=== PATIENT | female | born 2005 | race Caucasian/White ===

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

== ENCOUNTER → 2024-01-09 | Outpatient (REF) | payer BC ==
[2024-01-09 19:53] LABS: BASO # 0.1 10^3/uL (0.0-0.2); BASO % 0.8 % (0.0-1.0); EOS # 0.2 10^3/uL (0.0-0.5); EOS % 3.5 % (0.0-3.0); HEMOGLOBIN 14.3 g/dl (12.0-15.5); LYMPH # 2.5 10^3/uL (1.5-5.0); LYMPH % 42.2 % (24.0-44.0); MEAN CORPUSCULAR HEMOGLOBIN 31.3 pg (27.0-33.0); MEAN CORPUSCULAR VOLUME 91.9 fl (80.0-96.0); MONO # 0.5 10^3/uL (0.0-0.8); MONO % 8.7 % (2.0-8.0); NEUTROPHILS # 2.6 10^3/uL (1.5-8.5); NEUTROPHILS % 43.3 % (36.0-66.0); PLATELET COUNT, AUTOMATED 273 10^3/uL (150-450); RED BLOOD COUNT 4.57 10^6/uL (4.00-5.40)
[2024-01-09 20:24] LABS: ALBUMIN 4.1 G/DL (3.2-5.2); ALKALINE PHOSPHATASE 71 U/L (46-116); ALT/SGPT 17 U/L (7.0-40); AST/SGOT 19 U/L (<34); BILIRUBIN,TOTAL 0.6 MG/DL (0.3-1.2); BLOOD UREA NITROGEN 11 MG/DL (9-23); CALCIUM LEVEL 8.5 MG/DL (8.5-10.1); CARBON DIOXIDE LEVEL 25 MMOL/L (20-31); CHLORIDE LEVEL 108 MMOL/L (98-107); CREATININE FOR GFR 0.56 MG/DL (0.55-1.30); GLUCOSE, FASTING 83 MG/DL (60-100); POTASSIUM SERUM 4.7 MMOL/L (3.5-5.1); SODIUM LEVEL 138 MMOL/L (136-145); TOTAL PROTEIN 6.8 G/DL (5.7-8.2)
[2024-01-09 20:25] LABS: THYROID STIMULATING HORMONE 1.078 uIU/ML (0.48-4.17)
== END ==
LOC: M LAB REF 19:02
PROVIDERS: ATTEND Physician Assistant
DX: E55.9 Vitamin D deficiency, unspecified (principal)

== ENCOUNTER 2024-03-12 19:30 | Emergency (ER) | payer BC ==
[~2024-03-12] VITALS: Ht 167.6 cm; Wt 53.7 kg
[2024-03-12 19:31] VITALS: BP 127/81; TEMP 96.1; O2SAT 100
[2024-03-12 20:35] LABS: BASO # 0.1 10^3/uL (0.0-0.2); BASO % 0.6 % (0.0-1.0); EOS # 0.1 10^3/uL (0.0-0.5); EOS % 1.5 % (0.0-3.0); HEMATOCRIT 40.6 % (36.0-47.0); HEMOGLOBIN 14.2 g/dl (12.0-15.5); LYMPH # 2.8 10^3/uL (1.5-5.0); LYMPH % 35.1 % (24.0-44.0); MEAN CORPUSCULAR HEMOGLOBIN 32.1 pg (27.0-33.0); MEAN CORPUSCULAR VOLUME 91.9 fl (80.0-96.0); MONO # 0.8 10^3/uL (0.0-0.8); MONO % 9.8 % (2.0-8.0); NEUTROPHILS # 4.1 10^3/uL (1.5-8.5); NEUTROPHILS % 52.9 % (36.0-66.0); PLATELET COUNT, AUTOMATED 340 10^3/uL (150-450); RED BLOOD COUNT 4.42 10^6/uL (4.00-5.40); WHITE BLOOD COUNT 7.8 10^3/uL (4.0-10.0)
[2024-03-12 21:05] LABS: BLOOD UREA NITROGEN 13 MG/DL (9-23); CALCIUM LEVEL 9.4 MG/DL (8.5-10.1); CARBON DIOXIDE LEVEL 26 MMOL/L (20-31); CHLORIDE LEVEL 106 MMOL/L (98-107); CREATININE FOR GFR 0.64 MG/DL (0.55-1.30); GLUCOSE, FASTING 118 MG/DL (60-100); HCG, SERUM QUANTITATIVE 110.5 MIU/ML (<4.2); POTASSIUM SERUM 4.2 MMOL/L (3.5-5.1); SODIUM LEVEL 140 MMOL/L (136-145)
[2024-03-12 21:53] LABS: ALBUMIN 4.4 G/DL (3.2-5.2); ALKALINE PHOSPHATASE 75 U/L (46-116); ALT/SGPT 20 U/L (7.0-40); AST/SGOT 25 U/L (<34); BILIRUBIN,DIRECT 0.1 MG/DL (<0.4); BILIRUBIN,TOTAL 0.3 MG/DL (0.3-1.2)
== END 2024-03-12 23:09 | disposition home or self-care (01) ==
LOC: M ED 19:30
DX: O20.0 Threatened abortion (principal); O99.340 Other mental disorders complicating pregnancy, unspecified trimester; O99.320 Drug use complicating pregnancy, unspecified trimester; O99.330 Smoking (tobacco) complicating pregnancy, unspecified trimester; O99.310 Alcohol use complicating pregnancy, unspecified trimester; Z88.2 Allergy status to sulfonamides

== ENCOUNTER → 2024-03-15 | Outpatient (CLI) | payer BC | LOC: M LAB 07:46 | PROVIDERS: ATTEND Physician Assistant | DX: O26.851 Spotting complicating pregnancy, first trimester (principal); Z3A.00 Weeks of gestation of pregnancy not specified ==

== ENCOUNTER → 2024-03-19 | Outpatient (CLI) | payer BC | LOC: M LAB 16:12 | PROVIDERS: ATTEND Physician Assistant | DX: O26.851 Spotting complicating pregnancy, first trimester (principal); Z3A.00 Weeks of gestation of pregnancy not specified ==

== ENCOUNTER 2024-03-28 11:48 | Emergency (ER) | payer BC ==
[~2024-03-28] VITALS: Ht 167.6 cm; Wt 54.7 kg
[2024-03-28] MEDS: LIDOCAINE VISCOUS 2% SOLN 15ML UDC SS ONE (12:39)
[2024-03-28] MEDS: ACETAMINOPHEN 325MG/10.15ML UDC PO ONE (12:39)
[2024-03-28] MEDS ORDERED: LIDVISCBTL PO (12:58)
[2024-03-28] MEDS ORDERED: TYLE160S16 PO (12:58)
[2024-03-28] MEDS ORDERED: AMOX400S2 PO (12:58)
[2024-03-28 13:13] VITALS: BP 122/81; TEMP 100.1; O2SAT 96
== END 2024-03-28 13:12 | disposition home or self-care (01) ==
LOC: M ED 11:48
DX: J02.0 Streptococcal pharyngitis (principal); Z88.2 Allergy status to sulfonamides; F17.290 Nicotine dependence, other tobacco product, uncomplicated; Z11.52 Encounter for screening for COVID-19

== ENCOUNTER → 2024-11-27 | Outpatient (REF) | payer BC ==
[~2024-11-27] MED LIST: AMOX400S2 PO; LIDVISCBTL PO; TYLE160S16 PO
[2024-11-27 21:31] LABS: BACTERIA, URINE AUTO 1+ (NEGATIVE); MUCUS, URINE SMALL (NEGATIVE); RBC, URINE AUTO 0 /HPF (0-3); SQUAMOUS EPITHELIAL CELL UR AU 17 /HPF (0-6); WBC, URINE AUTO 0 /HPF (0-3)
[2024-11-27 21:44] LABS: APPEARANCE, URINE HAZY (CLEAR); BILIRUBIN, URINE AUTO NEGATIVE (NEGATIVE); BLOOD, URINE BLOOD NEGATIVE (NEGATIVE); COLOR, URINE YELLOW (YELLOW); GLUCOSE, URINE (UA) AUTO NEGATIVE (NEGATIVE); KETONE, URINE AUTO NEGATIVE (NEGATIVE); LEUKOCYTE ESTERASE, URINE AUTO NEGATIVE (NEGATIVE); NITRITE, URINE AUTO NEGATIVE (NEGATIVE); PROTEIN, URINE AUTO NEGATIVE (NEGATIVE); SPECIFIC GRAVITY URINE AUTO 1.023 (1.002-1.035)
[2024-11-27 22:28] LABS: Trichomonas vaginalis (AMP) NOT DETECTED (NEGATIVE)
[2024-11-27 22:51] LABS: GC DNA AMPLIFICATION NEGATIVE (NEGATIVE)
== END ==
LOC: M LAB REF 20:57
PROVIDERS: ATTEND Physician Assistant Medical
DX: Z11.3 Encounter for screening for infections with a predominantly sexual mode of transmission (principal)

== ENCOUNTER 2025-03-16 15:27 | Emergency (ER) | payer BC ==
[~2025-03-16] VITALS: Ht 170.2 cm; Wt 54.1 kg
[2025-03-16 15:32] VITALS: TEMP 98.2
[2025-03-16 16:17] LABS: EOS % 1.4 % (0.0-3.0); HEMATOCRIT 41.5 % (36.0-47.0); HEMOGLOBIN 14.4 g/dl (12.0-15.5); LYMPH # 1.4 10^3/uL (1.5-5.0); LYMPH % 49.1 % (24.0-44.0); MEAN CORPUSCULAR HEMOGLOBIN 31.9 pg (27.0-33.0); MEAN CORPUSCULAR HGB CONC 34.7 g/dl (32.0-36.5); MONO # 0.3 10^3/uL (0.0-0.8); MONO % 9.3 % (2.0-8.0); NEUTROPHILS # 1.1 10^3/uL (1.5-8.5); NEUTROPHILS % 39.2 % (36.0-66.0); PLATELET COUNT, AUTOMATED 303 10^3/uL (150-450); RED BLOOD COUNT 4.51 10^6/uL (4.00-5.40); WHITE BLOOD COUNT 2.9 10^3/uL (4.0-10.0)
[2025-03-16 16:46] LABS: BLOOD UREA NITROGEN 9 MG/DL (9-23); CALCIUM LEVEL 8.9 MG/DL (8.5-10.1); CARBON DIOXIDE LEVEL 26 MMOL/L (20-31); CHLORIDE LEVEL 105 MMOL/L (98-107); CREATININE FOR GFR 0.63 MG/DL (0.55-1.30); GLOMERULAR FILTRATION RATE > 90.0 (>60); GLUCOSE, FASTING 84 MG/DL (60-100); POTASSIUM SERUM 4.1 MMOL/L (3.5-5.1); SODIUM LEVEL 142 MMOL/L (136-145)
[2025-03-16 17:45] VITALS: BP 130/90; O2SAT 99
== END 2025-03-16 17:45 | disposition home or self-care (01) ==
LOC: M ED 15:27
DX: K64.9 Unspecified hemorrhoids (principal); Z88.2 Allergy status to sulfonamides

== ENCOUNTER 2025-06-09 02:55 | Inpatient (IN) | payer BC ==
[~2025-06-09] VITALS: Ht 170.2 cm; Wt 55.0 kg
[2025-06-09 03:32] LABS: BASO # 0.1 10^3/uL (0.0-0.2); BASO % 0.5 % (0.0-1.0); EOS # 0.1 10^3/uL (0.0-0.5); EOS % 0.6 % (0.0-3.0); LYMPH # 4.5 10^3/uL (1.5-5.0); LYMPH % 44.5 % (24.0-44.0); MONO # 0.9 10^3/uL (0.0-0.8); MONO % 8.4 % (2.0-8.0); NEUTROPHILS # 4.6 10^3/uL (1.5-8.5); NEUTROPHILS % 45.8 % (36.0-66.0); PLATELET COUNT, AUTOMATED 324 10^3/uL (150-450)
[2025-06-09 03:53] LABS: ETHYL ALCOHOL (ETHANOL) 0.290 % (0.000-0.010)
[2025-06-09 03:55] LABS: ALT/SGPT 21 U/L (7.0-40); AST/SGOT 32 U/L (<34); CALCIUM LEVEL 9.8 MG/DL (8.5-10.1); CARBON DIOXIDE LEVEL 24 MMOL/L (20-31); CHLORIDE LEVEL 105 MMOL/L (98-107); CREATININE FOR GFR 0.68 MG/DL (0.55-1.30); GLOMERULAR FILTRATION RATE > 90.0 (>60); POTASSIUM SERUM 3.7 MMOL/L (3.5-5.1); SALICYLATE LEVEL 13.4 MG/DL (<30); SODIUM LEVEL 144 MMOL/L (136-145)
[2025-06-09 04:00] LABS: CPK CREATINE PHOSPHOKINASE 253 U/L (34-145)
[2025-06-09] MEDS: CHARCOAL ACTIVATED LIQUID 25 GM/120 ML BTL PO ONE (04:00)
[2025-06-09 04:08] LABS: AMPHETAMINES LEVEL URINE NEGATIVE (NEGATIVE); BARBITURATES URINE NEGATIVE (NEGATIVE); BENZODIAZEPINES URINE NEGATIVE (NEGATIVE); COCAINE METABOLITE URINE NEGATIVE (NEGATIVE); METHADONE URINE NEGATIVE (NEGATIVE); PHENCYCLIDINE URINE NEGATIVE (NEGATIVE)
[2025-06-09 04:09] LABS: OPIATES URINE NEGATIVE (NEGATIVE)
[2025-06-09 04:23] LABS: CANNABINOIDS URINE POSITIVE (NEGATIVE)
[2025-06-09] MEDS: NICOTINE 14 MG/24 HR TRANSDERMAL TD ONE (04:47)
[2025-06-09] MEDS ORDERED: HOME MED LIST COMPLETE! XX SCH (07:55)
[2025-06-09 08:04] LABS: SALICYLATE LEVEL 15.0 MG/DL (<30)
[2025-06-09] MEDS: NS (Normal Saline) 0.9% 1,000 ML IV ONE (08:27)
[2025-06-09] MEDS: THIAMINE 100 MG TAB PO SCH (09:00)
[2025-06-09] MEDS: FOLIC ACID 1 MG TAB PO SCH (09:00)
[2025-06-09] MEDS: MULTIVITAMINS/MINERALS THERAP 1 TAB PO SCH (09:00)
[2025-06-09] MEDS ORDERED: MOM 30 ML SUSPENSION UDC PO PRN (14:40)
[2025-06-09] MEDS ORDERED: MAALOX 30 ML SUSP *UDC PO PRN (14:40)
[2025-06-09] MEDS ORDERED: traZODone 50 MG TAB PO PRN (14:40)
[2025-06-09] MEDS ORDERED: ACETAMINOPHEN 325 MG TAB PO PRN (14:40)
[2025-06-09] MEDS ORDERED: IBUPROFEN 400 MG TAB PO PRN (14:40)
[2025-06-09 17:31] VITALS: BP 138/98; TEMP 98.1; O2SAT 99
[2025-06-09 17:42] VITALS: BP 138/98
[2025-06-10 06:34] VITALS: BP 154/96
[2025-06-10 06:43] VITALS: BP 154/96; TEMP 98.6; O2SAT 98
[2025-06-10] MEDS: NICOTINE 21 MG/24 HR 1 EA TRANSDERMAL TD SCH (08:35)
[2025-06-10 14:30] VITALS: BP 148/98; TEMP 98.1; O2SAT 99
[2025-06-10 17:08] VITALS: BP 140/92; TEMP 98.1; O2SAT 100
[2025-06-10 22:34] VITALS: BP 156/92
[2025-06-11 06:31] VITALS: BP 165/95; TEMP 97.7; O2SAT 97
[2025-06-11 08:18] VITALS: BP 138/82
== END 2025-06-11 09:31 | disposition home or self-care (01) | DRG 775 ==
LOC: M ED 02:55 → M ED INP 14:38 → M PSY 16:44
PROVIDERS: ADMIT General Practice; ATTEND General Practice
DX: F10.94 Alcohol use, unspecified with alcohol-induced mood disorder (principal); R45.851 Suicidal ideations; F32.A Depression, unspecified; F17.200 Nicotine dependence, unspecified, uncomplicated; F12.90 Cannabis use, unspecified, uncomplicated; Z88.2 Allergy status to sulfonamides